=== PATIENT | female | born 1990 | race African-American/Black ===

== ENCOUNTER 2016-07-06 10:26 | Emergency (ER) | payer MEDICAID ==
[~2016-07-06] VITALS: Ht 160 cm; Wt 52.2 kg
[2016-07-06] MEDS ORDERED: NKM (10:35)
[2016-07-06] MEDS ORDERED: Cyclobenzaprine 10mg Tab ORAL ONE (10:45)
--- NOTE | 2016-07-06 11:31 | Diagnostic Imaging Report ---
Indication: Pain Findings: 3 views of the right wrist were obtained. No acute fractures, malalignment, erosions or periostitis are identified. Bone mineralization is within normal limits. Soft tissues are unremarkable. Impression: Negative examination of the right wrist.
[2016-07-06] MEDS ORDERED: TYLENOL EXTRA500 MG ORAL (11:52)
[2016-07-06] MEDS ORDERED: CYCLOBENZAPRINE10 MG ORAL (11:52)
[2016-07-06 12:09] VITALS: BP 101/56
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
== END 2016-07-06 12:11 | disposition home or self-care (01) ==
LOC: EMR 10:35
DX: S16.1XXA Strain of muscle, fascia and tendon at neck level, initial encounter (principal); V43.62XA Car passenger injured in collision with other type car in traffic accident, initial encounter; Y92.414 Local residential or business street as the place of occurrence of the external cause; M25.531 Pain in right wrist; Z88.0 Allergy status to penicillin
CPT/HCPCS: 99284